=== PATIENT | male | born 1985 | race Caucasian/White ===

== ENCOUNTER 2017-05-05 00:30 | Emergency (ER) | payer MEDICAID, OTHER | END 2017-05-05 02:14 | disposition home or self-care (01) | LOC: FTE 00:30 | DX: J20.9 Acute bronchitis, unspecified (principal) | CPT/HCPCS: 82962; 99283 ==

== ENCOUNTER 2017-05-20 07:50 | Emergency (ER) | payer MEDICAID ==
[2017-05-20] MEDS: LORAZEPAM 1 MG TAB PO (08:25)
== END 2017-05-20 09:33 | disposition home or self-care (01) ==
LOC: FTE 07:50
DX: F41.9 Anxiety disorder, unspecified (principal); R00.2 Palpitations
CPT/HCPCS: 71045; 93005; 99284-25

== ENCOUNTER 2017-11-05 18:06 | Emergency (ER) | payer SELFPAY, MEDICAID ==
[2017-11-05] MEDS: LORAZEPAM 1 MG TAB PO (20:50)
[2017-11-05 20:58] LABS: ADD MAN DIFF? NO
[2017-11-05 21:00] LABS: WHITE BLOOD COUNT 7.5 10^3/ul (4.8-10.8)
[2017-11-05 21:00] LABS: BASOPHILS % 0.1 % (0.0-2.0); EOSINOPHILS % 0.4 % (0.0-7.0); HEMATOCRIT 46.6 % (42.0-52.0); HEMOGLOBIN 15.8 g/dl (14.0-18.0); LYMPHOCYTES # 1.6 10^3/ul (0.8-2.9); MEAN CORPUSCULAR HEMOGLOBIN 31.6 pg (29.0-33.0); MEAN CORPUSCULAR HGB CONC 33.9 g/dl (32.0-37.0); MEAN CORPUSCULAR VOLUME 93.2 fl (82.0-101.0); MEAN PLATELET VOLUME 9.4 fl (7.4-10.4); MONOCYTE # 0.3 10^3/ul (0.3-0.9); MONOCYTES % 4.4 % (0.0-11.0); NEUTROPHIL # 5.5 10^3/ul (1.6-7.5); PLATELET COUNT 251 10^3/UL (140-415); RED CELL DISTRIBUTION WIDTH 11.8 % (11.5-14.5)
[2017-11-05 21:20] LABS: ALANINE AMINOTRANSFERASE 31 IU/L (13-69); ALBUMIN 4.8 g/dl (3.3-4.9); ALBUMIN/GLOBULIN RATIO 1.26; ALKALINE PHOSPHATASE 87 IU/L (42-121); ANION GAP 17 (8-16); ASPARTATE AMINO TRANSFERASE 30 IU/L (15-46); BILIRUBIN,INDIRECT 0.4 mg/dl (0-1.1); BILIRUBIN,TOTAL 0.4 mg/dl (0.2-1.3); BLOOD UREA NITROGEN 13 mg/dl (7-20); CALCIUM 9.7 mg/dl (8.4-10.2); CARBON DIOXIDE 23 mmol/L (21-31); CHLORIDE 106 mmol/L (97-110); GLUCOSE 101 mg/dl (70-220); POTASSIUM 4.4 mmol/L (3.5-5.1); SODIUM 142 mmol/L (135-144); TOTAL PROTEIN 8.6 g/dl (6.1-8.1)
== END 2017-11-05 22:37 | disposition home or self-care (01) ==
LOC: FTE 18:06
DX: F41.1 Generalized anxiety disorder (principal); R51 Headache
CPT/HCPCS: 70450; 80053; 85025; 99284-25